=== PATIENT | male | born 1965 | race Caucasian/White ===

== ENCOUNTER → 2020-07-26 | Outpatient (CLI) | payer OTHER ==
[~2020-07-26] MED LIST: ADVAIR 500-501 EACH INH; ALFUZOSIN HCL10 MG PO; ALLEGRA180 MG PO; ATENOLOL 25MG T25 MG PO; BAYER CHEWABLE81 MG PO; FLONASE16 GM NASAL; LIPITOR20 MG PO; NEXIUM20 M1 PO; NEXIUM40 MG PO; PRAVASTATIN SOD20 MG PO; SINGULAIR 10 MG10 M1 PO; [UNRECOGNIZED DRUG - OTHER]
== END ==
LOC: RAD 12:56
PROVIDERS: ATTEND Internal Medicine Pulmonary Disease
DX: R06.02 Shortness of breath (principal); I70.0 Atherosclerosis of aorta

== ENCOUNTER → 2020-09-06 | Outpatient (CLI) | payer OTHER | LOC: SJCVCIMAG 10:47 | PROVIDERS: ATTEND Internal Medicine Cardiovascular Disease | DX: R94.31 Abnormal electrocardiogram [ECG] [EKG] (principal); I10 Essential (primary) hypertension; E78.5 Hyperlipidemia, unspecified; R06.00 Dyspnea, unspecified ==

== ENCOUNTER 2021-01-09 19:07 | Emergency (ER) | payer OTHER ==
[~2021-01-09] VITALS: Ht 177.8 cm; Wt 97.1 kg
[2021-01-09] MEDS ORDERED: CLARITIN10 M3 PO (19:19)
[2021-01-09] MEDS ORDERED: SYMBICORT160 MCG/4. INH (19:21)
[2021-01-09] MEDS ORDERED: PREDNISONE 20 M20 MG PO (20:22)
[2021-01-09 20:35] VITALS: BP 168/93
== END 2021-01-09 20:37 | disposition home or self-care (01) ==
LOC: ER 19:07
DX: J45.901 Unspecified asthma with (acute) exacerbation (principal); K21.9 Gastro-esophageal reflux disease without esophagitis; Z90.89 Acquired absence of other organs; Z98.890 Other specified postprocedural states; Z79.82 Long term (current) use of aspirin; Z79.899 Other long term (current) drug therapy; Z79.1 Long term (current) use of non-steroidal anti-inflammatories (NSAID); Z88.8 Allergy status to other drugs, medicaments and biological substances; Z88.2 Allergy status to sulfonamides

== ENCOUNTER → 2021-03-08 | Outpatient (CLI) | payer OTHER ==
[~2021-03-08] MED LIST changes: +CLARITIN10 M3 PO; +PREDNISONE 20 M20 MG PO; +SYMBICORT160 MCG/4. INH
== END ==
LOC: RAD 14:55
PROVIDERS: ATTEND Internal Medicine Pulmonary Disease
DX: R06.02 Shortness of breath (principal); J45.30 Mild persistent asthma, uncomplicated; J45.31 Mild persistent asthma with (acute) exacerbation; J30.1 Allergic rhinitis due to pollen